=== PATIENT | female | born 1985 | race Caucasian/White ===

== ENCOUNTER 2017-03-17 10:00 | Emergency (ER) | payer OTHER ==
[~2017-03-17] VITALS: Ht 170.2 cm; Wt 61.9 kg
[2017-03-17 10:05] VITALS: TEMP 36.8; Ht 170.2 cm; Wt 61.9 kg
[2017-03-17] MEDS ORDERED: CHN/1 PO (10:12)
[2017-03-17 10:37] VITALS: BP 111/65; PULSE 85; O2SAT 99
--- NOTE | 2017-03-17 14:57 | EMERGENCY ROOM VISIT NOTE ---
History First contact with patient: 10:07 Chief Complaint: FOREIGNBODY ANY BODY PART Stated Complaint: REMOVAL OF TAMPON-STRING BROKE History of Present Illness The patient is a 31 year old female who presents to the Emergency Room with complaints of a retained tampon. The patient reports that she attempted to remove the tampon this morning but the string broke off. She inserted the tampon this morning around 1 AM, or approximately 9 hours ago. She denies any pelvic or vaginal pain, bleeding or vaginal drainage. Review of Systems 6 system review was performed and was negative except for pertinent positives and negatives as indicated in history of present illness Past Medical/Surgical History Medical Problems: (1) No significant past medical history Surgical Problems: (1) No history of previous surgery Family History Unremarkable Social History Smoking Status: Current Every Day Smoker Alcohol Use: occasionally Marital Status: Occupation Status: employed Current/Historical Medications Scheduled Varenicline (Chantix), 1 MG PO DIRECTED Allergies Coded Allergies: No Known Allergies (Unverified , 03/17/17) Physical Exam Vital Signs Date Time Temp Pulse Resp B/P Pulse Ox O2 Delivery O2 Flow Rate FiO2 03/17/17 10:37 85 18 111/65 99 03/17/17 10:05 36.8 94 18 116/61 100 Room Air Pain Rating (0-10): 0 Physical Exam CONSTITUTIONAL: Healthy and well nourished. Alert and oriented X 3 with positive affect. Patient does not appear in any acute distress. HEENT: Normocephalic, atraumatic. Pupils equal, round and reactive. NECK: Full active range of motion without discomfort. GASTROINTESTINAL: No abdominal tenderness to palpation. GENITOURINARY: With a female nurse dam attendant present, the tampon was located under speculum exam, and removed in several pieces with a Tori forceps as the tampon structure had broken down. There is no evidence for vaginal erythema, edema or laceration. Cervix also appears normal. INTEGUMENTARY: No rash or other significant dermatologic conditions noted. Medical Decision & Procedures ED Course Patient history and physical exam were performed. Tampon removal was performed during speculum exam. The patient was instructed to return for any developing pelvic pain, vaginal bleeding or drainage. Impression Primary Impression: Retained tampon Departure Information Dispostion Home / Self-Care Condition GOOD Forms HOME CARE DOCUMENTATION FORM, IMPORTANT VISIT INFORMATION Patient Instructions My [facility] Additional Instructions Watch for any developing discomfort or vaginal drainage Problem Qualifiers Primary Impression: Retained tampon Encounter type: initial encounter Qualified Codes: T19.2XXA - Foreign body in vulva and vagina, initial encounter
== END 2017-03-17 10:38 | disposition home or self-care (01) ==
LOC: C.EDB 10:02
DX: T19.2XXA Foreign body in vulva and vagina, initial encounter (principal); X58.XXXA Exposure to other specified factors, initial encounter; F17.200 Nicotine dependence, unspecified, uncomplicated